=== PATIENT | female | born 1985 | race Hispanic/Latino ===

== ENCOUNTER 2016-11-28 08:01 | Emergency (ER) | payer SELFPAY ==
[~2016-11-28] VITALS: Ht 144.8 cm; Wt 79.5 kg
[~2016-11-28 08:01] MED LIST: GLYBURIDE2.5 MG; PRENATAL1 TA1 PO
[2016-11-28] MEDS ORDERED: KEFLEX500 MG PO (08:39)
[2016-11-28] MEDS ORDERED: DIFLUCAN150 MG PO (08:39)
[2016-11-28 08:46] VITALS: BP 122/76
== END 2016-11-28 08:58 | disposition home or self-care (01) | DRG 761 ==
LOC: ED 08:01
DX: N89.8 Other specified noninflammatory disorders of vagina (principal)